=== PATIENT | female | born 1955 | race Caucasian/White ===

== ENCOUNTER 2021-05-24 07:19 | Emergency (ER) | payer MEDICARE, OTHER ==
--- NOTE | 2021-05-24 08:44 | EDM.PDOC ---
ED HPI GENERAL MEDICAL PROBLEM - General Chief Complaint: Genitourinary Problem Stated Complaint: BLOOD IN URINE Time Seen by Provider: 05/24/21 07:31 Source of Information: Reports: Patient History Limitations: Reports: No Limitations - History of Present Illness Onset Date: 05/21/21 Duration: Constant Quality: Reports: Other (Hematuria without dysuria) Severity: Mild Improves with: Reports: None Worsens with: Reports: None - Related Data Allergies Allergy/AdvReac Type Severity Reaction Status Date / Time No Known Allergies Allergy Verified 05/24/21 07:34 Home Meds: Home Meds Rosuvastatin [Crestor] 5 mg PO DAILY 05/24/21 [History] Sulfamethoxazole/Trimethoprim [Bactrim Ds Tablet] 1 each PO BID 5 Days #10 tablet 05/24/21 [Rx] Venlafaxine [Effexor XR] 150 mg PO DAILY 05/24/21 [History] hydroCHLOROthiazide [Hydrochlorothiazide] 25 mg PO DAILY 05/24/21 [History] lisinopriL [Lisinopril] 20 mg PO DAILY 05/24/21 [History] Past Medical History Cardiovascular History: Reports: High Cholesterol, Hypertension Genitourinary History: Reports: UTI, Recurrent Psychiatric History: Reports: Anxiety - Infectious Disease History Infectious Disease History: Reports: Novel Coronavirus - Past Surgical History Female Surgical History: Reports: Other (See Below) Other Female Surgeries/Procedures: partial hysterectomy Social & Family History - Tobacco Use Tobacco Use Status *Q: Never Tobacco User - Caffeine Use Caffeine Use: Reports: Soda - Recreational Drug Use Recreational Drug Use: No ED ROS GENERAL - Review of Systems Review Of Systems: Comprehensive ROS is negative, except as noted in HPI. Constitutional: Reports: No Symptoms : Reports: Hematuria. Denies: Dysuria, Flank Pain, Frequency, Urgency ED EXAM, RENAL/ - Physical Exam Exam: See Below Exam Limited By: No Limitations General Appearance: Alert, No Apparent Distress Head: Atraumatic Neck: Supple Respiratory/Chest: No Respiratory Distress GI/Abdominal: Soft, Non-Tender. No: Distended Back Exam: Normal Inspection. No: CVA Tenderness (L), CVA Tenderness (R) Extremities: Normal Inspection Neurological: Alert, Oriented Psychiatric: Normal Affect Skin Exam: Warm Course - Vital Signs Text/Narrative:: Patient's urine does show some blood trace leukocytes positive for nitrates. I am starting her on Bactrim. I am recommending she follow-up with her PCP in 5 days for recheck sooner if having worsening symptoms. Return to ER if having fever or shaking chills, vomiting or back pain. Last Recorded V/S: Last Vital Signs Temp 96.9 F 05/24/21 07:37 Pulse 84 05/24/21 07:37 Resp 14 05/24/21 07:37 BP 163/87 H 05/24/21 07:37 Pulse Ox 98 05/24/21 07:37 - Orders/Labs/Meds Labs: Laboratory Tests 05/24/21 Range/Units 07:30 Urine Color Yellow (Yellow) Urine Appearance Clear (Clear) Urine pH 6.5 (5.0-8.0) Ur Specific [place] 1.010 (1.005-1.030) Urine Protein Negative (Negative) Urine Glucose (UA) Negative (Negative) Urine Ketones Negative (Negative) Urine Occult Blood 3+ H (Negative) Urine Nitrite Positive H (Negative) Urine Bilirubin Negative (Negative) Urine Urobilinogen 0.2 (0.2-1.0) Ur Leukocyte Esterase 1+ H (Negative) Departure - Departure Time of Disposition: 08:44 Disposition: Home, Self-Care 01 Condition: Good Clinical Impression: UTI, Urinary tract infectious disease - Discharge Information Prescriptions: Sulfamethoxazole/Trimethoprim [Bactrim Ds Tablet] 1 each PO BID 5 Days #10 tablet Instructions: Urinary Tract Infection, Adult Referrals: PCP,Not In Area [Primary Care Provider] - Additional Instructions: Return to ER if having fever or chills, vomiting or worsening pain. Follow-up with PCP and/or urologist for recheck in 5 to 7 days. See them sooner if not improving. Bactrim as prescribed. Sepsis Event Note (ED) - Evaluation Sepsis Screening Result: No Definite Risk - Focused Exam Vital Signs: Vital Signs Temp Pulse Resp BP Pulse Ox 05/24/21 07:37 96.9 F 84 14 163/87 H 98
== END 2021-05-24 09:06 | disposition home or self-care (01) ==
LOC: JD.ED 07:19
DX: N39.0 Urinary tract infection, site not specified (principal); E78.00 Pure hypercholesterolemia, unspecified; I10 Essential (primary) hypertension; Z86.16 Personal history of COVID-19; Z79.899 Other long term (current) drug therapy
CPT/HCPCS: 81003; 99283

== ENCOUNTER 2022-08-06 06:10 | Emergency (ER) | payer MEDICARE, OTHER ==
[2022-08-06] MEDS ORDERED: Ondansetron 4 MG Tab.DIS PO ONE (06:50)
[2022-08-06] MEDS ORDERED: cefTRIAXone 1 GM in Sodium Chloride 0.9% 100 ML IV ONE (07:12)
== END 2022-08-06 08:50 | disposition home or self-care (01) ==
LOC: JD.ED 06:10
DX: N39.0 Urinary tract infection, site not specified (principal); N12 Tubulo-interstitial nephritis, not specified as acute or chronic; I10 Essential (primary) hypertension; E78.00 Pure hypercholesterolemia, unspecified; Z79.899 Other long term (current) drug therapy; Z86.16 Personal history of COVID-19
CPT/HCPCS: 36415; 80053; 81001; 85025; 87086; 87088; 87186; 96365; 99284; A9270; J0696; J3490; 99283